=== PATIENT | female | born 1965 | race African-American/Black ===

== ENCOUNTER 2017-08-14 22:45 | Inpatient (IN) | payer OTHER ==
[~2017-08-14] VITALS: Ht 162.6 cm; Wt 106.1 kg
--- NOTE | ~2017-08-14 | EKG ---
[address] [place] [address] ELECTROCARDIOGRAM REPORT Name: SHARAN GAINES Room #: 448-P ADM IN M.R.#: [id number] Admission: 08/15/17 Attend Phys: Kristi Cervantes Discharge: Date of : 67 Report #: [id number] THIS REPORT FOR: //name// [facility] ED Test Date: 2017-08-14 Test Time: 22:50:04 Pat Name: SHARAN GAINES Department: Room: [facility] Gender: F Storehouse Clerk: GAMALIEL : 1965 Requested By: Willie Delgado Order Number: [id number] MD: Alberto Briones Measurements Intervals [place] Rate: 77 P: 46 MA: 143 QRS: 10 QRSD: 84 T: 73 QT: 371 QTc: 420 Interpretive Statements Sinus rhythm Abnormal R-wave progression, early transition Borderline T wave abnormalities No previous ECG available for comparison Electronically Signed On 08-15-2017 8:10:16 [employer] by Alberto Briones [email or web address] <ELECTRONICALLY SIGNED> By: Alberto Briones MD, [facility] 08/15/17 0810 D: [id number] Alberto Briones MD, FACC /EPI
[2017-08-14 23:06] VITALS: BP 174/94
[2017-08-14 23:57] LABS: HEMOGLOBIN 12.8 gm/dL (12.0-15.0); MCH 30.5 pg (26.0-34.0); MCHC 33.7 g/dL (28.0-37.0); MCV 90.4 fL (80.0-100.0); RBC 4.2 mil/uL (4.20-5.00); RDW 12.7 % (10.5-14.5); WBC 6.3 thou/uL (4.0-11.0)
[2017-08-15 00:06] LABS: ANION GAP 7 mmol/L (7-16); BUN 9 mg/dL (7-18); CALCIUM 8.7 mg/dL (8.5-10.1); CHLORIDE 108 mmol/L (98-107); CO2 28 mmol/L (21-32); CREATININE 0.8 mg/dL (0.6-1.0); GLUCOSE 99 mg/dL (74-106); POTASSIUM 3.6 mmol/L (3.5-5.1); SODIUM 143 mmol/L (136-145)
[2017-08-15 00:16] LABS: TROPONIN-I < 0.04 ng/mL (<0.06)
[2017-08-15 01:09] VITALS: BP 170/107
[2017-08-15 01:20] VITALS: BP 157/90
[2017-08-15 03:37] VITALS: BP 123/83
[2017-08-15 07:02] LABS: ANION GAP 7 mmol/L (7-16); BUN 8 mg/dL (7-18); CALCIUM 8.5 mg/dL (8.5-10.1); CHLORIDE 107 mmol/L (98-107); CO2 25 mmol/L (21-32); CREATININE 0.6 mg/dL (0.6-1.0); GLUCOSE 110 mg/dL (74-106); POTASSIUM 3.5 mmol/L (3.5-5.1); SODIUM 139 mmol/L (136-145)
[2017-08-15 07:15] LABS: CHOLESTEROL 111 mg/dL (<200); HDL CHOLESTEROL 45 mg/dL (>40); LDL CHOLESTEROL 61 mg/dL (<100); TC:HDL 2.5 Ratio (Not establshd); TRIGLYCERIDE 28 mg/dL (<150); VLDL 6 mg/dL (<40)
[2017-08-15 07:30] VITALS: BP 152/110
[2017-08-15 08:46] VITALS: BP 149/89
[2017-08-15] MEDS ORDERED: LISINOPRIL10 MG PO (10:05)
[2017-08-15] MEDS ORDERED: NORVASC10 MG PO (10:10)
[2017-08-15] MEDS ORDERED: HYDROCODONE-AP1 EAC6 PO (10:10)
[2017-08-15] MEDS ORDERED: PREDNISONE 20 M20 MG PO (10:10)
[2017-08-15 13:26] VITALS: BP 149/89
== END 2017-08-15 14:45 | disposition home or self-care (01) | DRG 313 ==
LOC: ER 22:45 → EROBS 08-15 00:57 → 4S 08-15 00:57 → ENTRNSPT 08-15 14:15 → EDTRNSPTSTS 08-15 14:16 → 4S 08-15 14:45
PROVIDERS: Emergency Medicine; Nurse Practitioner Family
DX: R07.89 Other chest pain (principal); F17.210 Nicotine dependence, cigarettes, uncomplicated; J45.909 Unspecified asthma, uncomplicated; I10 Essential (primary) hypertension; Z71.6 Tobacco abuse counseling; Z90.710 Acquired absence of both cervix and uterus; Z88.0 Allergy status to penicillin
CPT/HCPCS: 10100